=== PATIENT | male | born 1955 | race Caucasian/White ===

== ENCOUNTER 2020-02-09 23:24 | Emergency (ER) | payer OTHER ==
--- NOTE | 2020-02-09 23:26 | PDOC ---
History of Present Illness - General Chief Complaint: Pain Stated Complaint: CYST ON BACK Time Seen by Provider: 02/09/20 23:26 - History of Present Illness Initial Comments: This 64-year-old male with hx of HTN/HLD/hypothyroidism presents with 2-3 week history of skin abscess of mid-back. Area was evaluated by his hydrological technical officer 2 weeks ago and the patient was scheduled to have an MRI /see a surgeon within the next 10 days. Tonight, the patient noted blood and pus draining from the wound. He notes mild pain but no fever/chills. The patient has previous history of skin abscess on his back, drained by a surgeon, a few years ago. No history of immunocompromise or resistant organism colonization/infection. Meds as noted below Allergy: Amoxicillin(urticaria of lower legs) non smoker/no daily alcohol or other recreational drugs Past History - Medical History Allergies/Adverse Reactions: Allergies Allergy/AdvReac Type Severity Reaction Status Date / Time amoxicillin Allergy Verified 02/09/20 23:26 Home Medications: Ambulatory Orders Allopurinol 0 mg PO DAILY 02/09/20 Clopidogrel Bisulfate [Plavix] 0 mg PO DAILY 02/09/20 Levothyroxine [Synthroid -] 0 mcg PO DAILY 02/09/20 Metoprolol Tartrate 0 mg PO DAILY 02/09/20 Simvastatin 0 mg PO HS 02/09/20 Clindamycin [Cleocin -] 300 mg PO TID #15 capsule 02/10/20 Review of Systems - Review of Systems Able to Perform ROS?: Yes Comments:: 12 point review of systems is negative except for what is noted in the history of present illness *Physical Exam - Physical Exam GENERAL: Adult male, alert and oriented x3, no acute distress HEAD: Normal with no signs of trauma. EYES: PERRLA, EOMI, sclera anicteric, conjunctiva clear. EXTREMITIES: Normal range of motion, no edema. No clubbing or cyanosis. No erythema, or tenderness. NEUROLOGICAL: Cranial nerves II through XII grossly intact. Normal speech. No focal neurological deficits SKIN: 6 cm x 4 cm erythematous, slightly fluctuant, mildly tender edematous area midline lower thoracic back 0.5 central pore with mixed sanguinous and seropurulent discharge Well-healed 2 cm incision to the left of midline upper lumbar back Procedures - Incision and Drainage I&D Site: Right: Torso (Midline lower thoracic back) Betadine cleansed: No (Hibiclens/ethanol) Anesthesia: 1% Lidocaine Volume(ml): 3 Blade Size: 11 Attempts: 1 Iodinated Packin in Complications: none Dressing: Yes (Sterile gauze) Progress: Area around abscess cleansed with Hibiclens solution and sterilely draped. 3 mL of 1% lidocaine infiltrated locally for anesthesia. 2 cm horizontal linear incision was made through central pore with #11 scalpel. Serosanguineous and seropurulent drainage expressed with gentle manual pressure. Sample taken for culture and sensitivity. Cavity explored: No septation detected. Wound irrigated with 40 mL of sterile normal saline. Wound packed with approximate 5 inch length of 2 inch wide packing. Gentle direct pressure to wound maintained for approximately 5 minutes. No bleeding from wound detected. Sterile gauze dressing applied. Patient tolerated procedure well Medical Decision Making - Medical Decision Making As noted above, 64-year-old man with a history of HTN/HLD taking Plavix (among other medications) with no history of immunocompromise presents with 2 to 3-week history of progressive swelling in skin abscess of his mid back. Patient had spontaneous bleeding/purulent drainage from the abscess this evening. Incision and drainage of abscess performed as noted above. Because of the significant area of surrounding erythema and edema, patient will be treated for surrounding cellulitis with clindamycin 300 mg 3 times a day for 5 days. First dose given here in the emergency room. The patient has been instructed to remove the packing in 48 hours (alternatively, he can return here for packing removal). After this, he can leave the wound open, especially when bathing/showering, if drainage/bleeding is not significant. If there is significant drainage, he can use sterile dressing as needed. If he has persistent bleeding from the wound, direct pressure should be placed locally. If there is persistence in the bleeding, he should return to the ER. He should plan on following up with surgeon as previously scheduled. Discharge - Discharge Information Problems reviewed: Yes Clinical Impression/Diagnosis: Abscess of back Condition: Stable Disposition: HOME - Additional Discharge Information Prescriptions: Clindamycin [Cleocin -] 300 mg PO TID #15 capsule - Follow up/Referral Referrals: Ethan Dunaway MD [Primary Care Provider] - - Patient Discharge Instructions Patient Printed Discharge Instructions: Incision and Drainage of a Skin Abscess Additional Instructions: Keep dressing in place for 48 hours If there is any oozing from the wound, maintain direct pressure to area Remove packing in 2 days as discussed Gauze dressing or Band-Aid with bacitracin/Neosporin to wound after initial dressing is removed Clindamycin 300 mg 3 times a day for 5 days Return to ER if bleeding is persistent or if area becomes more swollen, painful or red - Post Discharge Activity
[2020-02-09 23:34] VITALS: BP 144/77; PULSE 58; TEMP 98; BMI 33.2
[2020-02-10] MEDS ORDERED: CLINDAMYCIN HCL 150 MG CAPSULE (FP) ONE (00:12)
[2020-02-10] MEDS ORDERED: CLINDAMYCIN HCL 300 MG CAPSULE PO ONE (00:13)
== END 2020-02-10 00:22 | disposition home or self-care (01) ==
LOC: FER 23:24
PROC: 0H96XZZ Drainage of Back Skin, External Approach (ICD-10-PCS; principal; 2020-02-09)
DX: L02.212 Cutaneous abscess of back [any part, except buttock and flank] (principal)
CPT/HCPCS: 87070; 87205; 99284-25